=== PATIENT | male | born 1960 | race Caucasian/White ===

== ENCOUNTER 2019-03-16 15:11 | Outpatient (CLI) | payer OTHER, SELFPAY ==
--- NOTE | ~2019-03-16 | US_ITS ---
EXAMINATION: US abdomen complete DATE: 03/16/2019 15:57 INDICATION: Upper abdominal pain. TECHNIQUE: Multiple grayscale and Doppler ultrasound images of the abdomen were obtained. COMPARISON: CT abdomen and pelvis 03/28/2009 FINDINGS: The visualized portions of the head and body of the pancreas are normal. The liver is jenny l without focal lesion. There is normal flow in main portal vein. The gallbladder is not visualized. The common duct is not visualized. The spleen is normal in size. The right kidney is not visualized. The left kidney measures 10.8 x 6.8 x 5.1 cm. There is a 2.0 cm cyst in left kidney. IMPRESSION: 1. Gallbladder, common duct, and right kidney not visualized. No visibility etiology for the patient' s symptoms. Reviewed, dictated and finalized at location A. CH[facility] IMPRESSION: 1. Gallbladder, common duct, and right kidney not visualized. No visibility camryn ology for the patient's symptoms.
== END 2019-03-16 15:12 | disposition home or self-care (01) ==
LOC: ANHIMG 15:19
PROVIDERS: PCP Family Medicine; Visit Provider Family Medicine
DX: R10.13 Epigastric pain (principal)
CPT/HCPCS: 76700

== ENCOUNTER → 2020-03-22 01:08 | Outpatient (CLI) | payer OTHER, SELFPAY ==
[2020-03-23 00:21] LABS: SARS-CoV-2 RNA PCR Negative
== END ==
PROVIDERS: PCP Family Medicine; Visit Provider Internal Medicine Cardiovascular Disease
DX: Z01.812 Encounter for preprocedural laboratory examination (principal); Z20.822 Contact with and (suspected) exposure to COVID-19
CPT/HCPCS: C9803; U0003; U0005

== ENCOUNTER 2020-03-25 02:17 | Day surgery (SDC) | payer OTHER, SELFPAY ==
[2020-03-24 15:23] VITALS: BMI 33.3
[2020-03-25] VITALS (15 sets, daily range): BP systolic 149–170; BP diastolic 71–89; PULSE 89–101; RESP 12–18; TEMP 37.1; O2SAT 93–100; BMI 33.3
[2020-03-25 09:18] LABS: Basophils Absolute Auto 0.1 K/mm3 (0.0-0.1); Basophils Percent Auto 0.7 % (0.2-1.2); Eosinophils Absolute Auto 0.3 K/mm3 (0-0.3); Eosinophils Percent Auto 3.6 % (0-4.4); Hematocrit 34.4 % (42.0-52.0); Immature Granulocyte Absolute 0.02 K/mm3 (0.00-0.031); Immature Granulocyte Percent A 0.2 % (0-0.5); Lymphocytes Absolute Auto 1.75 K/mm3 (0.9-3.2); Lymphocytes Percent Auto 19.6 % (18.3-44.2); Mean Corpuscular Hemoglobin 29.4 pg (26-34); Mean Platelet Volume 9.5 fl (7.4-10.4); Monocytes Absolute Auto 0.9 K/mm3 (0.1-0.6); Monocytes Percent Auto 9.9 % (2.6-8.5); Neutrophils Absolute Auto 5.9 K/mm3 (1.3-6.7); Platelet Count Result 252 k/mm3 (150-375); Red Blood Count 3.74 M/mm3 (4.6-6.20); Red Cell Distribution Width 13.9 % (11.5-14.5); White Blood Count 8.9 K/mm3 (4.5-10.0)
[2020-03-25 09:28] LABS: INR 0.9
[2020-03-25 09:30] LABS: Anion Gap 6 mmol/L (8-16); Blood Urea Nitrogen 35 mg/dL (9-20); Calcium 7.3 mg/dL (8.4-10.2); Carbon Dioxide 31 mmol/L (22-30); Chloride 106 mmol/L (98-107); Estimated CRCL calculation 15 ml/min; Estimated Glomerular Filt Rate 10; Glucose 123 mg/dL (75-110); Potassium 4.3 mmol/L (3.4-5.0); Sodium 143 mmol/L (137-145)
--- NOTE | 2020-03-25 09:52 | WPDMODSED ---
Moderate Sedation Note-Pt Data Patient Data Allergies Allergy/AdvReac Type Severity Reaction Status Date / Time amoxicillin Allergy Unknown Verified 03/02/19 06:36 Penicillins Allergy Unknown Verified 03/02/19 06:36 Home Medications Medication Instructions Recorded Confirmed Type amlodipine 5 mg PO DAILY 02/26/19 03/24/20 History aspirin 325 mg PO DAILY 02/26/19 03/24/20 History blood-glucose sensor [Dexcom G6 02/26/19 03/24/20 History Sensor] hydrocodone-acetaminophen 5 - 325 tablet PO PRN PRN 02/26/19 03/24/20 History insulin aspart U-100 [Novolog 100 unit SUBCUT DAILY 02/26/19 03/24/20 History Flexpen U-100 Insulin] insulin glargine [Basaglar KwikPen 100 unit SUBCUT DAILY 02/26/19 03/24/20 History U-100 Insulin] liraglutide [Victoza 3-Raad] 0.6 mg SUBCUT DAILY 02/26/19 03/24/20 History lisinopril 40 mg PO DAILY 02/26/19 03/24/20 History pantoprazole 40 mg PO DAILY 02/26/19 03/24/20 History rosuvastatin 20 mg PO DAILY 02/26/19 03/24/20 History calcium acetate 1,334 mg PO TID 03/24/20 03/24/20 History tadalafil [Cialis] 20 mg PO DAILY PRN 03/24/20 03/24/20 History Current Medications: Active Medications Sodium Chloride (Normal Saline Iv) 500 mls @ 100 mls/hr IV CONT .Q5H RU Sedation/Anesthesia: No previous sedation/anesthesia problems (including family history). [facility] Past Medical History Medical History (Updated 03/02/19 @ 07:25 by Bryan Kinsey MD) CKD (chronic kidney disease) Diabetes HTN (hypertension) Hyperlipidemia Surgical History Surgical History (Updated 03/02/19 @ 07:25 by Bryan Kinsey MD) History of total knee arthroplasty Social History Social History Smoking status: Never smoker Alcohol intake: current Mod Sed Physical Exam Physical Exam Pre Procedural Exam: Normal: Airway Hours since solid foods: 10 Hours since liquid intake: 10 Internal Medicine - PN: Obj Da Vital Signs Vital Signs: Vital Signs - 24 hr 03/25/20 09:23 Temperature 37.1 C Pulse Rate 90 Respiratory Rate 15 Blood Pressure 150/79 H Pulse Oximetry 98 Meds/Results Medications: Active Medications Generic Name Dose Route Start Last Admin Trade Name Macq PRN Reason Stop Dose Admin Sodium Chloride 500 mls @ 100 mls/hr 03/25/20 07:05 Normal Saline Iv IV CONT .Q5H RU Labs CBC & Chem 7: 03/25/20 09:05 03/25/20 09:05 Labs: Laboratory Results - last 24 hr 03/25/20 03/25/20 03/25/20 09:05 09:05 09:05 WBC 8.9 RBC 3.74 L Hgb 11.0 L Hct 34.4 L MCV 92.0 MCH 29.4 MCHC 32.0 RDW 13.9 Plt Count 252 MPV 9.5 Immature Gran % (Auto) 0.2 Neut % (Auto) 66.0 Lymph % (Auto) 19.6 [place] % (Auto) 9.9 H Eos % (Auto) 3.6 Baso % (Auto) 0.7 Lymph # (Auto) 1.75 [place] # (Auto) 0.9 H Eos # (Auto) 0.3 Baso # (Auto) 0.1 Abs Immat Gran (auto) 0.02 Absolute Neuts (auto) 5.9 Absolute Nucleated RBC 0.0 Nucleated RBC % 0.0 PT 13.0 INR 0.9 Sodium 143 Potassium 4.3 Chloride 106 Carbon Dioxide 31 H Anion Gap 6 L BUN 35 H Creatinine 5.80 H Estim Creat Clear Calc 15 Estimated GFR 10 L Glucose 123 H Calcium 7.3 L ASA Classification/Sedation ASA Classification/Sedation Risks: Risks, benefits and alternatives explained and patient/family accepted plan for sedation. Patient re-evaluated immediately prior to sedation.
--- NOTE | 2020-03-25 09:52 | WPDHPUPDATE1 ---
History and Physical Update Update Date/Time: 03/25/20 09:52 History and Physical has been reviewed, including an updated exam of the patient. There are NO changes in the patient's condition. Risks, benefits, and alternatives have been discussed and questions answered. Patient agrees to proceed with procedure.
--- NOTE | 2020-03-25 10:42 | WPDCARDPROC ---
Cardiac Cath Procedure Note Date of procedure:: 03/25/20 Performing physician:: Rachid Villasenor MD Procedure Procedure note:: LEFT HEART CATHETERIZATION AND CORONARY ANGIOGRAM REPORT DATE OF PROCEDURE: 03/25/2020 INDICATION FOR PROCEDURE: shortness of breath, chest pressure, abnormal stress test BRIEF CLINICAL HISTORY: 59-year-old male with hypertension, diabetes mellitus on insulin, CKD on hemodialysis, dyslipidemia. Patient was referred for cardiac catheterization in the setting of shortness of breath, chest pressure and abnormal MPI. His MPI from 03/13/2020 reportedly showed LVEF 53%, small area of mild mirela-infarct ischemia in the inferior wall and mid -basal anterior anna Benefits and risks of the procedure were discussed with the patient in depth, and informed consent was obtained prior to the procedure. Risks of the procedure include but are not limited to vascular complications including groin hematoma, retroperitoneal bleed, vessel perforation; periprocedural AR, cardiac arrhythmias, stroke, contrast induced nephropathy, and . After discussing all the benefits, risks and alternatives, patient was willing to proceed with the procedure. PROCEDURES PERFORMED: 1. Left heart catheterization- Selective left and right coronary angiogram; left ventriculogram and hemodynamic assessment 2. Selective right common femoral angiogram 3. Moderate sedation-CPT code 82244 MODERATE SEDATION: Midazolam 2 mg; fentanyl 50 mcg; Start time 1024 , Stop time 1038 ; Total ixoc-ur-ktrm time 14 minutes; Mariah Gamboa RN was trained observer for moderate sedation. ACCESS SITE: Right common femoral artery PROCEDURE NOTE: After obtaining informed consent, patient was brought to catheterization lab and prepped and draped in a usual sterile manner. After local anesthesia with lidocaine, right common femoral artery access was taken with micropuncture needle followed by insertion of a 5 Ukrainian sheath. Selective left and right coronary angiogram was performed using 5 Ukrainian JL4 and JR4 catheters respectively. Orthogonal views were taken. JR4 catheter was advanced in the LV cavity and was flushed with normal saline. LV pressure measurement was performed. After this, left ventriculogram was performed. The catheter was flushed again, and gradient across the aortic valve was measured on the pullback of the catheter. Finally, selective right common femoral angiogram was performed. Access site was closed bifurcation, therefore, vascular closure device was not used. Manual pressure was used for local hemostasis. Patient tolerated procedure well without any immediate procedure related complications. FINDINGS: LEFT MAIN CORONARY: The left main coronary artery is a large caliber vessel without angiographically significant focal stenosis. The vessel trifurcates into LAD, ramus intermedius and dominant left circumflex arteries. LEFT ANTERIOR DESCENDING ARTERY: The LAD is a medium caliber vessel with mild diffuse plaque in the proximal -mid segment. The vessel tapers distally and reaches the LV apex. Diagonal branches are relatively small caliber vessels. RAMUS INTERMEDIUS: A medium to large caliber, tortuous vessel with minor irregularities in the proximal segment. LEFT CIRCUMFLEX ARTERY: The left circumflex artery is a large size, dominant vessel. It gives rise to medium caliber, tortuous OM1 branch; small caliber multiple other OM branches; and medium caliber tortuous LPDA without significant focal stenosis. RIGHT CORONARY ARTERY: The right coronary artery is a small to medium caliber non dominant vessel with about a 50% stenosis in the mid segment. LEFT VENTRICULOGRAM: suboptimal;LVEF about 50-55%, LVEDP 18 mmHg. HEMODYNAMIC ASSESSMENT: Opening pressure 130/70 mmHg , closing pressure 153/69 mmHg , LVEDP 18 mmHg , no significant gradient across aortic valve on the pullback of pigtail catheter. RIGHT COMMON FEMORAL ARTERY: Naz
== END 2020-03-25 18:10 | disposition home or self-care (01) ==
PROVIDERS: Internal Medicine Cardiovascular Disease; PCP Family Medicine; Visit Provider Internal Medicine Cardiovascular Disease
PROC: 4A023N7 Measurement of Cardiac Sampling and Pressure, Left Heart, Percutaneous Approach (ICD-10-PCS; CPT 93452; principal; 2020-03-25 10:30)
DX: I25.10 Atherosclerotic heart disease of native coronary artery without angina pectoris (principal); R94.39 Abnormal result of other cardiovascular function study; R07.89 Other chest pain; R06.02 Shortness of breath; I12.0 Hypertensive chronic kidney disease with stage 5 chronic kidney disease or end stage renal disease; E11.22 Type 2 diabetes mellitus with diabetic chronic kidney disease; N18.6 End stage renal disease; Z99.2 Dependence on renal dialysis; E78.5 Hyperlipidemia, unspecified; Z79.4 Long term (current) use of insulin; Z79.82 Long term (current) use of aspirin
CPT/HCPCS: 36415; 80048; 85025; 85610; 93458; C1887; C1894; J0461; J1644; J2250; J3010; J7040

== ENCOUNTER 2020-05-02 09:29 | Outpatient (CLI) | payer OTHER, SELFPAY ==
--- NOTE | ~2020-05-02 | XR_ITS ---
EXAMINATION: XR chest 2V DATE: 05/02/2020 09:42 INDICATION: Shortness of breath. COVID-19 pneumonia in August. TECHNIQUE: Frontal and lateral views of the chest were obtained. COMPARISON: Chest 2 views 05/19/2005 FINDINGS: The lung volumes are normal. There are mild airspace opacities in the mid and lower lung zo montrell. No pleural effusion or pneumothorax. The heart size is normal. IMPRESSION: 1. Mild airspace opacities in the mid and lower lung zones, consistent with atelectasis versus pneumo florencio versus chronic lung disease. Reviewed, dictated and finalized at location A. IMPRESSION: 1. Mild airspace opacities in the mid and lower lung zones, consistent with ate lectasis versus pneumonia versus chronic lung disease.
== END 2020-05-02 09:30 | disposition home or self-care (01) ==
LOC: ANHIMG 09:32
PROVIDERS: PCP Family Medicine; Visit Provider Internal Medicine Nephrology
DX: R06.02 Shortness of breath (principal); R04.2 Hemoptysis; R91.8 Other nonspecific abnormal finding of lung field
CPT/HCPCS: 71046

== ENCOUNTER 2020-11-28 11:02 | Outpatient (CLI) | payer OTHER, SELFPAY ==
--- NOTE | ~2020-11-28 | XR_ITS ---
XR chest 2V DATE: 11/28/2020 11:30 INDICATION: Shortness of breath. History of hypertension, diabetes TECHNIQUE: PA and lateral views COMPARISON: 05/02/2020 2 view chest FINDINGS: Cardiomegaly. No pulmonary infiltrate or consolidation, pleural effusion or pulmonary vascular congestion or pneumo thorax is detected. IMPRESSION: Cardiomegaly; no active pulmonary disease Reviewed, dictated and finalized at location A.
== END 2020-11-28 11:03 | disposition home or self-care (01) ==
LOC: ANHIMG 11:10
PROVIDERS: PCP Family Medicine; Visit Provider Internal Medicine Nephrology
DX: R06.02 Shortness of breath (principal); I51.7 Cardiomegaly
CPT/HCPCS: 71046

== ENCOUNTER 2021-01-21 02:58 | Observation (INO) | payer OTHER, MEDICARE, SELFPAY ==
[2021-01-21] VITALS (31 sets, daily range): BP systolic 104–156; BP diastolic 41–81; PULSE 89–111; RESP 12–20; TEMP 35.2–37.7; O2SAT 92–100; BMI 37.2
--- NOTE | ~2021-01-21 | CT_ITS ---
EXAMINATION: CTA chest PE protocol DATE: 01/21/2021 05:44 INDICATION: Chest pain. Shortness of breath. TECHNIQUE: Computed tomography angiography (CTA) of the chest was performed with 100 mL Omnipaque-350 intravenous contrast timed to evaluate the pulmonary arteries. Coronal maximum intensity projection 3D-reconstructions were created by the technologist. Automated exposure control and iterative reconst ruction technique were employed. The dose-length product was 1071.35 mGy-cm. COMPARISON: CT abdomen and pelvis 03/28/2009 FINDINGS: There is diffuse septal thickening in the lungs with a peripheral predominance. No pleural effusion. Cardiomegaly is noted. There are coronary artery calcifications. No pericardial effusion. T here is no pulmonary embolus. There is mild thoracic spondylosis. IMPRESSION: 1. No pulmonary embolus. 2. Diffuse septal thickening in the lungs, consistent with mild pulmonary edema and/or mild chronic i nterstitial lung disease. 3. Cardiomegaly. Reviewed, dictated and finalized at location A. [facility] [employer] IMPRESSION: 1. No pulmonary embolus. 2. Diffuse septal thickening in the lungs, consistent with mild pulmonary edema and/or mild chronic interstitial lung disease. 3. Cardiomegaly.
--- NOTE | ~2021-01-21 | XR_ITS ---
EXAMINATION: XR chest 2V DATE: 01/21/2021 03:59 INDICATION: Left chest pain. TECHNIQUE: Frontal and lateral views of the chest were obtained. COMPARISON: Chest 2 views 11/28/2020, chest CT 01/21/2021 FINDINGS: The lung volumes are small. There is a diffuse interstitial pattern in the lungs. No pleura l effusion or pneumothorax. Cardiomegaly is noted. IMPRESSION: 1. Small lung volumes with diffuse interstitial pattern, consistent with mild pulmonary edema versus mild chronic interstitial lung disease. 2. Cardiomegaly. Reviewed, dictated and finalized at location A. MAKER IMPRESSION: 1. Small lung volumes with diffuse interstitial pattern, consistent with mild p ulmonary edema versus mild chronic interstitial lung disease. 2. Cardiomegaly.
--- NOTE | 2021-01-21 03:03 | ED.CHESTPAIN ---
HPI - Chest Pain General Chief Complaint: Chest Pain Stated Complaint: chest pain, lt arm pain Time Seen by Provider: 01/21/21 03:03 Source: patient Mode of arrival: ambulatory Limitations: no limitations History of Present Illness HPI narrative: Patient is a 60 yo male with a history of HTN, Insulin dependent diabetes, HLD, ESRD on dialysis, presenting for evaluation of chest pain. Pain began around 1 am this morning. Pain 5/10. He reports left sided chest pain without radiation. No ripping or tearing to the flank. Pain is worse with inspiration. No diaphoresis, nausea, vomiting or dyspnea. No neck or jaw pain. Pt states this does not feel consistent with acid reflux. Pt has a history of chronic dyspnea with exertion. He denies current shortness of breath. Pt with heart catheterization in February which was normal. Patient is scheduled to have an ECHO tomorrow. This is in preparation of clearance for renal transplant. Patient's seat coverer is Dr. Lopez. Related Data Home Medications Medication Instructions Recorded Confirmed Basaglar KwikPen U-100 Insulin 100 unit SUBCUT DAILY 02/26/19 03/24/20 Dexcom G6 Sensor 02/26/19 03/24/20 Victoza 3-Raad 0.6 mg SUBCUT DAILY 02/26/19 03/24/20 amlodipine 5 mg PO DAILY 02/26/19 03/24/20 aspirin 325 mg PO DAILY 02/26/19 03/24/20 hydrocodone-acetaminophen 5 - 325 tablet PO PRN PRN 02/26/19 03/24/20 insulin aspart U-100 [Novolog 100 unit SUBCUT DAILY 02/26/19 03/24/20 Flexpen U-100 Insulin] lisinopril 40 mg PO DAILY 02/26/19 03/24/20 pantoprazole 40 mg PO DAILY 02/26/19 03/24/20 rosuvastatin 20 mg PO DAILY 02/26/19 03/24/20 calcium acetate 1,334 mg PO TID 03/24/20 03/24/20 tadalafil [Cialis] 20 mg PO DAILY PRN 03/24/20 03/24/20 Allergies Allergy/AdvReac Type Severity Reaction Status Date / Time amoxicillin Allergy Unknown Unknown Verified 01/21/21 03:24 Penicillins Allergy Unknown Unknown Verified 01/21/21 03:24 Review of Systems Review of Systems: CONSTITUTIONAL: Denies fever, chills, or sweats. EYES: Denies visual changes, redness, or discharge. ENT: Denies rhinorrhea, congestion, sore throat, or otalgia. CARDIOVASCULAR: Reports chest pain, without palpitations, or edema. RESPIRATORY: Denies cough or dyspnea. GASTROINTESTINAL: Denies abdominal pain, nausea, vomiting, or diarrhea. GENITOURINARY: Denies dysuria or hematuria. SKIN: Denies rash or itching. MUSCULOSKELETAL: Denies back pain, joint pain, or myalgia. NEUROLOGIC: Denies headache, numbness, or weakness. [facility] Past Medical History Medical History CKD (chronic kidney disease) Diabetes HTN (hypertension) Hyperlipidemia Surgical History Surgical History History of total knee arthroplasty Social History Social History Smoking status: Never smoker Alcohol intake: current Exam Narrative: GENERAL: Awake, alert, conversant HEAD: Normocephalic, atraumatic. EYES: PERRLA and EOMI. ENT: Nares clear, no rhinorrhea or epistaxis. Mucous membranes moist. NECK: Supple. CHEST: No respiratory distress, breathing even and non labored, no chest wall tenderness HEART: Regular rate, sinus rhythm ABDOMEN:Non distended, non tender EXTREMITIES: Normal range of motion. No edema. SKIN: Warm, dry, no rash. NEURO:No focal deficits. Alert and oriented x3 Course Vital Signs Vital signs: Vital Signs Pulse Rate 100 01/21/21 03:08 Respiratory Rate 15 01/21/21 03:08 Blood Pressure 130/81 01/21/21 03:08 Pulse Oximetry 99 01/21/21 03:08 Pulse Rate 98 01/21/21 06:00 Respiratory Rate 15 01/21/21 05:59 Blood Pressure 125/73 01/21/21 05:59 Pulse Oximetry 100 01/21/21 05:59 MDM - Chest Pain MDM Narrative Medical decision making narrative: Patient presented with left-sided chest pain. At the time of assessment ABCs are intact
--- NOTE | 2021-01-21 03:09 | ECG_ITS ---
Measurements Intervals [place] Rate: 102 P: 70 NV: 191 QRS: 15 QRSD: 101 T: 55 QT: 363 QTc: 473 Interpretive Statements SINUS TACHYCARDIA POSSIBLE LEFT ATRIAL ENLARGEMENT INCOMPLETE RIGHT BUNDLE BRANCH BLOCK BORDERLINE R WAVE PROGRESSION, ANTERIOR LEADS MINIMAL Q WAVES- INFERIOR LEADS BORDERLINE ECG Electronically Signed On 01-21-2021 6:46:47 PACKAGE LIFT OPERATOR by Chepe Lerner D.O.
[2021-01-21] MEDS: ASPIRIN 81 MG CHEWABLE TABLET 324 MG PO (03:32)
[2021-01-21] MEDS: ONDANSETRON INJ 4 MG/2 ML VIAL IV PUSH (03:33)
--- NOTE | 2021-01-21 03:35 | PC.NURSE ---
Pt given 1st SL nitro tab, rates pain a 5/10.
--- NOTE | 2021-01-21 03:40 | PC.NURSE ---
2nd SL nitro tab give, rates pain a 3/10 currently.
[2021-01-21 03:45] LABS: Basophils Absolute Auto 0.1 K/mm3 (0.0-0.1); Basophils Percent Auto 0.6 % (0.2-1.2); Eosinophils Absolute Auto 0.5 K/mm3 (0-0.3); Eosinophils Percent Auto 3.6 % (0-4.4); Hematocrit 35.8 % (42.0-52.0); Hemoglobin 11.4 g/dL (14.0-18.0); Immature Granulocyte Absolute 0.04 K/mm3 (0.00-0.031); Immature Granulocyte Percent A 0.3 % (0-0.5); Lymphocytes Absolute Auto 1.22 K/mm3 (0.9-3.2); Lymphocytes Percent Auto 9.7 % (18.3-44.2); Mean Corpuscular HGB Conc 31.8 g/dl (32-36); Mean Corpuscular Hemoglobin 31.4 pg (26-34); Mean Corpuscular Volume 98.6 fl (80-100); Mean Platelet Volume 10.2 fl (7.4-10.4); Monocytes Percent Auto 8.1 % (2.6-8.5); Neutrophils Absolute Auto 9.8 K/mm3 (1.3-6.7); Neutrophils Percent Auto 77.7 % (45.5-73.1); Platelet Count Result 225 k/mm3 (150-375); Red Blood Count 3.63 M/mm3 (4.6-6.20); Red Cell Distribution Width 16.1 % (11.5-14.5); White Blood Count 12.6 K/mm3 (4.5-10.0)
--- NOTE | 2021-01-21 03:53 | PC.NURSE ---
Pt to XRAY at this time.
[2021-01-21 03:55] LABS: INR 1.1; Prothrombin Time 14.1 Seconds (11.1-14.7)
[2021-01-21 03:56] LABS: Partial Thromboplastin Time 31.8 SECONDS (22.3-36.8)
[2021-01-21 03:59] LABS: Alanine Aminotransferase 38 U/L (4-50); Albumin Level 4.5 g/dL (3.5-5.1); Alkaline Phosphatase 83 U/L (38-126); Anion Gap 16 mmol/L (8-16); Aspartate Amino Transferase 24 U/L (17-59); Bilirubin,Total 0.4 mg/dL (0.2-1.3); Blood Urea Nitrogen 85 mg/dL (9-20); Calcium 9.7 mg/dL (8.4-10.2); Carbon Dioxide 24 mmol/L (22-30); Chloride 96 mmol/L (98-107); Estimated Glomerular Filt Rate 5; Glucose 102 mg/dL (65-110); Lipase 119 U/L (23-300); Potassium 5.4 mmol/L (3.4-5.0); Sodium 136 mmol/L (137-145)
--- NOTE | 2021-01-21 04:00 | PC.NURSE ---
3rd SL nitro tab given, rates pain a 5/10 at this time, states It got worse again after my XRAYs and everything, I dont think its helped at all. EDP made aware.
[2021-01-21] MEDS: MORPHINE SULFATE (*CRX) 4 MG/ML INJ IV PUSH (04:08)
[2021-01-21 04:20] LABS: Troponin I 0.113 ng/mL (0.000-0.034)
--- NOTE | 2021-01-21 04:39 | ECG_ITS ---
Measurements Intervals [place] Rate: 93 P: 64 [place]: 188 QRS: 123 QRSD: 102 T: 61 QT: 376 QTc: 469 Interpretive Statements SINUS RHYTHM INCOMPLETE RIGHT BUNDLE BRANCH BLOCK LEFT POSTERIOR FASCICULAR BLOCK BORDERLINE R WAVE PROGRESSION, ANTERIOR LEADS ABNORMAL ECG Electronically Signed On 01-21-2021 6:48:48 RETAIL SERVICES PROFESSIONAL by Chepe Lerner D.O.
[2021-01-21 04:59] LABS: D Dimer 1.03 ug/mL (<0.48)
[2021-01-21 05:46] LABS: Glucose Point of Care 65 mg/dl (65-105)
--- NOTE | 2021-01-21 06:14 | ADMGEN ---
This patient, Rashda Andrew, was admitted to IMU Room 205-02. Patient/family oriented to hospital policies and general routines including ID bracelet, bed and alarms, visiting hours, pain management, procedures, bathroom and other care routines, personal items, smoking policy, room service/diet, and visiting hours. Information on how to activate the Rapid Response Team has been discussed. Patient/Family are encouraged to report perceived risks to care and to ask questions if they do not understand what they are told or what they should do.
[2021-01-21 08:03] LABS: Troponin I 0.112 ng/mL (0.000-0.034)
--- NOTE | 2021-01-21 08:06 | PM.IMHP ---
H&P: HPI History of Present Illness Date/Time: 01/21/21 08:06 Patient is a 60 yo gentleman with past a medical history of HTN, Insulin dependent diabetes, HLD, ESRD on MWF dialysis, currently being evaluated for a renal transplant, presenting for evaluation of chest pain. The patient was in his usual state of health until 1 am this morning. He developed sudden onset chest pain. Pain is rated 5/10on ER evaluation. He describes 8/10, pressure on his left chest pain without radiation at the time of my examination. No ripping or tearing to the flank. Pain is worse with inspiration. No diaphoresis, nausea, vomiting or dyspnea. No neck or jaw pain. Pt states this does not feel consistent with acid reflux. Patient underwent with heart catheterization in February. Report was reviewed. CAD- mild diffuse plaque proximal-mid LAD; about 50% stenosis in the mid segment of non-dominant RCA. 2. Left dominant coronary system 3. LVEF about 50-55%, LVEDP 18 mmHg. Patient reports a history of ESRD secondary to complication from diabetes. He dialyzes religiously 3 times a week at the [facility]. He does not report any issues with his dialysis sessions. The patient functional capacity is about 200 yd, limited by the development of shortness of breath. He is comfortable at rest. His currently being evaluated for renal transplant. He has not identified a living donor. Recent cardiac catheterization from February 2020 with 50% stenosis of mixed segment of non dominant RCA. He denies any history of GI problems. He denies past blood transfusion. He denies past psychiatric issues. Patient is overweight with a BMI of 37.2. Ideally he should lose some weight before undergoing kidney transplantation. Patient has recovered from an episode of COVID-19 last year; he has experienced chronic fatigue since that episode. Chief Complaint: Chest pain. Review of Systems Review of Systems: All systems reviewed & are unremarkable except as noted in HPI and below Constitutional: Constitutional: Reports as per HPI, Reports fatigue, Reports lethargy and Denies weakness Eyes: Eyes: Reports as per HPI and Denies blurry vision ENT: Reports as per HPI and Denies epistaxis Cardiovascular: Cardiovascular: Reports as per HPI, Reports chest pain, Denies pedal edema, Denies leg edema and Denies palpitations Respiratory: Respiratory: Reports as per HPI, Reports no additional respiratory complaints and Denies cough Gastrointestinal: Gastrointestinal: Reports as per HPI, Denies diarrhea, Denies nausea and Denies vomiting Genitourinary: Genitourinary: Reports no additional male genitourinary complaints and Reports as per HPI Musculoskeletal: Musculoskeletal: Reports no additional musculoskeletal complaints and Reports as per HPI Integumentary/Breasts: Skin/Breast: Reports system reviewed and no additional complaints, except as docu, Reports as per HPI and Denies rash Neurologic: Reports as per HPI and Denies confusion Psychiatric: Psychiatric: Reports as per HPI [facility] Past Medical History Medical History CKD (chronic kidney disease) Diabetes Diabetes HTN (hypertension) Hyperlipidemia Surgical History Surgical History History of total knee arthroplasty Social History Social History Smoking status: Never smoker Alcohol intake: never Substance use: never Spiritual care concerns: No Meds Home Medications and Allergies Home Medications Medication Instructions Recorded Confirmed Type Basaglar SamariaikPen U-100 Insulin 30 unit SUBCUT DAILY 02/26/19 01/21/21 History Dexcom G6 Sensor 02/26/19 01/21/21 History Victoza 3-Raad 0.6 mg SUBCUT DAILY 02/26/19 01/21/21 History amlodipine 5 mg PO QPM 02/26/19 01/21/21 History aspirin 325 mg PO DAILY 02/26/19 01/21/21 History hydrocodone-acetaminophen 5 - 325 tablet PO Q6H PRN 01
[2021-01-21 09:09] LABS: Glucose Point of Care 67 mg/dl (65-105)
[2021-01-21] MEDS: HYDROmorphone HCL INJ (*CRX) 1 MG/ML SYR IV PUSH (09:38)
[2021-01-21 10:23] LABS: Transferrin 165 mg/dL (206-381)
--- NOTE | 2021-01-21 10:30 | PM.CNCAR ---
Assessment and Plan Assessment and plan (1) Atypical chest pain: Code(s): R07.89 - Other chest pain Status: Acute Assessment and Plan: Clearly non coronary chest pain. His chest pain is pleuritic and change with positions such as leaning forward improved his pain. Possibly pericarditic but EKG does not support pericarditis. CT scan of chest performed in ED did not show any PE. Will give him 15 mg of IV Toradol. 2D echocardiogram with Doppler be ordered to evaluate for any evidence pericardial effusion. (2) Elevated troponin: Code(s): R77.8 - Other specified abnormalities of plasma proteins Status: Acute Assessment and Plan: These are not related to acute coronary syndrome. These are likely secondary to renal disease. Will DC further troponins. (3) Hypertension associated with diabetes: Code(s): E11.59 - Type 2 diabetes mellitus with other circulatory complications; I15.2 - Hypertension secondary to endocrine disorders Status: Acute Assessment and Plan: Controlled. Continue outpatient BP regimen (4) Hyperlipidemia associated with type 2 diabetes mellitus: Code(s): E11.69 - Type 2 diabetes mellitus with other specified complication; E78.5 - Hyperlipidemia, unspecified Status: Acute Assessment and Plan: Continue statin (5) End stage renal disease: Code(s): N18.6 - End stage renal disease Status: Acute Assessment and Plan: Dialysis to be performed today History of Present Illness History of Present Illness Consult date/time: 01/21/21 10:30 Requesting physician: Lanette Tolbert MD Consult reason: chest pain Reason For Visit: Chest Pain Narrative: Requesting provider: Dr. Tolbert Date of service 01/21/2021 Reason for consultation: Chest pain History: Patient is a 60-year-old male but a cardiac catheterization March 2020 showing no obstructive coronary disease. He had a mildly elevated LVEDP and EF 50-55%. He presents to the hospital because of chest pain. Woke up chest pain around 1:00 a.m. this morning. It was pleuritic. Worsened by breathing. Improved also with sitting forward. Not exertional. Does have some baseline dyspnea which is not new or different also some baseline edema which is also not new or different. He states that his edema is secondary to his end-stage renal disease. He states his dyspnea has been present since last August since he acquired COVID. He denies any syncope, presyncope, paroxysmal nocturnal dyspnea, orthopnea or palpitations. He was given pain medications and his chest pain has now improved. His troponins are minimally elevated but are not rising. Cardiology was consult for further assessment. Review of Systems Review of Systems: All systems reviewed & are unremarkable except as noted in HPI and below Constitutional: Constitutional: Denies weakness Eyes: Eyes: Denies blurry vision ENT: Reports Normal hearing present Cardiovascular: Cardiovascular: Reports chest pain and Reports leg edema Respiratory: Respiratory: Reports dyspnea Gastrointestinal: Gastrointestinal: Denies abdominal pain Genitourinary: Genitourinary: Denies dysuria Musculoskeletal: Musculoskeletal: Denies neck pain Integumentary/Breasts: Skin/Breast: Denies dry skin Neurologic: Denies headache(s) Psychiatric: Psychiatric: Denies anxiety Endocrine: Endocrine: Denies fatigue Hematologic/Lymphatic: Hematologic/Lymphatic: Denies easy bleeding Allergic/Immunologic: Allergic/Immunologic: Denies GI upset with certain foods PMFSH Past Medical History Medical History CKD (chronic kidney disease) Diabetes HTN (hypertension) Hyperlipidemia Surgical History Surgical History History of total knee arthroplasty Social History Social History Smoking sta
[2021-01-21 10:37] LABS: Iron 46 ug/dL (49-181)
[2021-01-21 10:46] LABS: Percent Iron Saturation 20 % (20-50)
[2021-01-21 10:48] LABS: Troponin I 0.105 ng/mL (0.000-0.034)
[2021-01-21] MEDS: SODIUM CHLORIDE 0.9% IV 1,000 ML 999 ML IV CONT (11:36)
--- NOTE | 2021-01-21 13:07 | PM.EVENT ---
Event Note Event Note Event Note: Patient is on dialysis and tolerating well. His blood pressure is 108/70. We are going for 3L today. He was seen at noon
--- NOTE | 2021-01-21 13:09 | PM.CNNEP ---
Assessment and Plan Assessment and plan (1) End stage renal disease: Code(s): N18.6 - End stage renal disease Status: Acute Assessment and Plan: patient has end-stage renal disease. This is due to diabetes and hypertension. He has been stable on dialysis for the last11 months. His Kt/vs have been generally good. Labs are pretty good as well except a phosphorus level is a little bit high. He goes to dialysis religiously 3 times a week. (2) Hyperlipidemia associated with type 2 diabetes mellitus: Code(s): E11.69 - Type 2 diabetes mellitus with other specified complication; E78.5 - Hyperlipidemia, unspecified Status: Acute Assessment and Plan: The patient has hyperlipidemia. He is on rosuvastatin (3) Hypertension associated with diabetes: Code(s): E11.59 - Type 2 diabetes mellitus with other circulatory complications; I15.2 - Hypertension secondary to endocrine disorders Status: Acute Assessment and Plan: blood pressure is doing well. He currently takes lisinopril and amlodipine. (4) Atypical chest pain: Code(s): R07.89 - Other chest pain Status: Acute Assessment and Plan: The patient has chest pain. This is not typical of angina in description. It is sharp and worse on lying flat better sitting up straight. It is not in exactly the right location but it could be pericarditis. However he is well dialyzed, he does not have a viral syndrome or other causes of pericarditis, his EKG does not suggest pericarditis, and he does not have a rub. This could be chest wall pain as well or possibly pleurisy. He is being evaluated by Cardiology and the hospitalists. (5) Diabetes: Code(s): E11.9 - Type 2 diabetes mellitus without complications Status: Acute Assessment and Plan: The patient has diabetes. He is on basaglar and NovoLog for this. History of Present Illness Reason for Consult Consult date: 01/21/21 Chief Complaint Chief complaint: Chest Pain History of Present Illness Narrative: Rashad is a very pleasant 60-year-old gentleman who has multiple medical problems including diabetes, hypertension, coronary disease with a 30- 50% lesion being treated medically, end-stage renal disease on dialysis 3 times a week since February. The patient says that he had sharp chest pain starting this morning at 1:00 a.m.. It will come out of sleep. He had no shortness of breath sweating nausea arm pain or jaw pain. It hurt a lot and so when he sat up from bed it felt better. He called 911. They gave him nitro which did not work at all. He went to the ER and he was given morphine which took the edge off it but then Dilaudid which took care of the pain. The patient was admitted to the hospital. Cardiology has been consulted. They have ordered some testing. The patient feels better now. He does not have as much chest pain. There is a trace of it now. He does not smoke or drink. Review of Systems Constitutional: Constitutional: Reports no additional constitutional complaints Eyes: Eyes: Reports no additional eye complaints ENT: Reports system reviewed and no additional complaints, except as documented Cardiovascular: Cardiovascular: Reports no additional cardiovascular complaints Respiratory: Respiratory: Reports no additional respiratory complaints Gastrointestinal: Gastrointestinal: Reports no additional gastrointestinal complaints Genitourinary: Genitourinary: Reports no additional male genitourinary complaints Musculoskeletal: Musculoskeletal: Reports no additional musculoskeletal complaints Integumentary/Breasts: Skin/Breast: Reports system reviewed and no additional complaints, except as docu Neurologic: Reports system reviewed and no additional complaints, except as documented Psychiatric: Psychiatric: Reports no additional psychiatric complaints Endocrine: Endocrine: Reports no additional endoc
[2021-01-21 17:57] LABS: Glucose Point of Care 43 mg/dl (65-105)
[2021-01-21 17:57] LABS: Glucose Point of Care 225 mg/dl (65-105)
[2021-01-21 20:44] LABS: Glucose Point of Care 211 mg/dl (65-105)
[2021-01-21] MEDS: ROSUVASTATIN 10 MG TABLET 20 MG PO (22:20)
[2021-01-21] MEDS: PANTOPRAZOLE 40 MG TABLET PO (22:20)
[2021-01-22] VITALS (7 sets, daily range): BP systolic 116–123; BP diastolic 57–67; PULSE 93–100; RESP 16–18; TEMP 36.5–37.2; O2SAT 93–95
--- NOTE | 2021-01-22 | ECHO_ITS ---
Patient Info Name: Rashad Andrew Age: 60 years : 1960 Gender: Male Ht: 68 in Wt: 244 lbs BSA: 2.35 m2 HR: 95 bpm BP: 123 / 67 mmHg Heart Rhythm: Sinus Rhythm Exam Date: 01/22/2021 9:14 AM Exam Location: [facility] Patient Status: Inpatient Admit Date: 01/21/2021 Staff Ordering Physician: Shaggy Fry MD Torch Straightener: Arvind Barnard, PRANAV, RT Attending Provider: Leti Key MD Referring Physician: Ang TAM; Exam Type: CA echo dop color flow w con Study Info Indications R07.9 - Chest pain, unspecified Complete two-dimensional, color flow and Doppler transthoracic echocardiogram is performed with contrast to opacify the left ventricle and to improve the deliniation of the left ventricle endocardial borders. Summary 1. Left ventricular chamber dimension is moderately enlarged. 2. Left ventricular systolic function is severely reduced, estimated at 20-25%. 3. There is mildly increased left ventricular wall thickness. 4. The left ventricular diastolic function is grade III diastolic dysfunction. 5. There is no thrombus visualized in the left ventricle. 6. Right ventricular chamber dimension is mildly enlarged. 7. Right ventricular systolic function is reduced. 8. Left atrial chamber dimension is moderately enlarged. 9. Right atrial chamber dimension is mildly enlarged. 10. There is mild to moderate aortic valve regurgitation. 11. The mitral valve annulus is mildly calcified. 12. There is mild mitral valve regurgitation. 13. Mild pulmonary hypertension, estimated pulmonary arterial systolic pressure is 39 mmHg. 14. There is moderate tricuspid valve regurgitation. 15. There is mild pulmonic regurgitation. Left Ventricle Left ventricular chamber dimension is moderately enlarged. Left ventricular systolic function is severely reduced, estimated at 20-25%. There is mildly increased left ventricular wall thickness. The left ventricular diastolic function is grade III diastolic dysfunction. There is no thrombus visualized in the left ventricle. Right Ventricle Right ventricular chamber dimension is mildly enlarged. Right ventricular systolic function is reduced. Left Atria Left atrial chamber dimension is moderately enlarged. Right Atria Right atrial chamber dimension is mildly enlarged. Atrial Septum Intact interatrial septum visualized by color flow imaging. Aortic Valve The aortic valve is trileaflet. There is mild aortic valve sclerosis. There is no aortic valve stenosis. There is mild to moderate aortic valve regurgitation. Pulmonic Valve The pulmonic valve is normal. There is no pulmonic valve stenosis. There is mild pulmonic regurgitation. Mitral Valve There is no mitral valve stenosis. There is mild mitral valve regurgitation. The mitral valve annulus is mildly calcified. Tricuspid Valve The tricuspid valve leaflets are normal. There is moderate tricuspid valve regurgitation. Mild pulmonary hypertension, estimated pulmonary arterial systolic pressure is 39 mmHg. Pericardium/Pleural The pericardium appears normal. There is trivial pericardial effusion. Inferior Vena Cava Dilated inferior vena cava with <50% collapse upon inspiration consistent with elevated right atrial pressure, 15 mmHg. Aorta The aortic root size at the sinus of Valsalva is normal. The prox ascending aorta size is normal. Left Ventricular Outflow Tract
--- NOTE | 2021-01-22 07:03 | PM.PNNEP ---
Progress Note: A&P Assessment and Plan (1) End stage renal disease: Code(s): N18.6 - End stage renal disease Status: Acute Assessment and Plan: patient has end-stage renal disease. This is due to diabetes and hypertension. He has been stable on dialysis for the last11 months. His Kt/vs have been generally good. Him on dialysis due tomorrow; if he is still here, we will do it here. Labs from today are pending. (2) Hyperlipidemia associated with type 2 diabetes mellitus: Code(s): E11.69 - Type 2 diabetes mellitus with other specified complication; E78.5 - Hyperlipidemia, unspecified Status: Acute Assessment and Plan: The patient has hyperlipidemia. He is on rosuvastatin (3) Hypertension associated with diabetes: Code(s): E11.59 - Type 2 diabetes mellitus with other circulatory complications; I15.2 - Hypertension secondary to endocrine disorders Status: Acute Assessment and Plan: blood pressure is doing well. He currently takes lisinopril and amlodipine. (4) Atypical chest pain: Code(s): R07.89 - Other chest pain Status: Acute Assessment and Plan: The patient has chest pain. This is not typical of angina in description. It is sharp and worse on lying flat better sitting up straight. It is not in exactly the right location but it could be pericarditis. However he is well dialyzed, he does not have a viral syndrome or other causes of pericarditis, his EKG does not suggest pericarditis, and he does not have a rub. This could be chest wall pain as well or possibly pleurisy. He is being evaluated by Cardiology who feels that this is not coronary chest pain. CTA was negative. Echo due today. (5) Diabetes: Code(s): E11.9 - Type 2 diabetes mellitus without complications Status: Acute Assessment and Plan: The patient has diabetes. He is on basaglar and NovoLog for this at home.. Subjective Date/time seen: 01/22/21 07:03 Interval history: Rashad is feeling better today. Pain is gone. He did well for the remainder of his dialysis yesterday. 2600cc was removed on the machine. Review of Systems Cardiovascular: Cardiovascular: Reports no additional cardiovascular complaints Respiratory: Respiratory: Reports no additional respiratory complaints Gastrointestinal: Gastrointestinal: Reports no additional gastrointestinal complaints Genitourinary: Genitourinary: Reports no additional male genitourinary complaints Exam Narrative: WDWN in NAD skin no rash head ncat lungs clear No chest wall tenderness cor reg no rub abd BS+ nontender and soft ext no edema. Objective Data Vital Signs Vital Signs: Vital Signs - 24 hr 01/21/21 08:00 01/21/21 10:00 01/21/21 10:35 Temperature 36.9 C 36.9 C Pulse Rate 96 97 98 Respiratory Rate 16 16 Blood Pressure 126/69 128/71 Pulse Oximetry 98 01/21/21 10:46 01/21/21 11:00 01/21/21 11:30 Temperature Pulse Rate 94 92 94 Respiratory Rate Blood Pressure 116/68 117/72 121/64 Pulse Oximetry 01/21/21 11:45 01/21/21 12:00 01/21/21 12:15 Temperature Pulse Rate 97 94 98 Respiratory Rate Blood Pressure 132/63 108/55 L 104/53 L Pulse Oximetry 01/21/21 12:30 01/21/21 12:45 01/21/21 13:00 Temperature Pulse Rate 93 102 H 100 Respiratory Rate Blood Pressure 134/53 L 127/61 148/71 H Pulse Oximetry 01/21/21 13:15 01/21/21 13:30 01/21/21 13:50 Temperature Pulse Rate 102 H 89 101 H Respiratory Rate Blood Pressure 119/77 130/41 L 132/54 L Pulse Oximetry 01/21/21 14:00 01/21/21 16:00 01/21/21 18:00 Temperature 36.8 C 37.7 C H Pulse Rate 99 109 H 101 H Respiratory Rate 16 16 Blood Pressure 156/64 H 115/58 L Pulse Oximetry 98 01/21/21 18:50 01/21/21 20:00 01/21/21 22:00 Temperature 36.7 C Pulse Rate 104 H 105 H Respiratory Rate 20 Blood Pressure 104/68 123/64 Pulse Oximetry 92 12/0
[2021-01-22 08:39] LABS: Albumin Level 4.3 g/dL (3.5-5.1); Anion Gap 11 mmol/L (8-16); Blood Urea Nitrogen 59 mg/dL (9-20); Calcium 8.6 mg/dL (8.4-10.2); Carbon Dioxide 29 mmol/L (22-30); Chloride 90 mmol/L (98-107); Estimated CRCL calculation 10 ml/min; Estimated Glomerular Filt Rate 6; Glucose 129 mg/dL (65-110); Phosphorus 5.9 mg/dL (2.5-4.5); Potassium 6.2 mmol/L (3.4-5.0); Sodium 130 mmol/L (137-145)
[2021-01-22] MEDS: FLUTICASONE PROP 220 MCG (*SP) 12 GM INHALER 1 PUFF INHALATION (09:00)
[2021-01-22] MEDS: PERFLUTREN LIPID MICROSPHERES 1.5 ML VIAL DILUTED TO 10 ML TOTAL VOLUME IV PUSH (09:05)
[2021-01-22 09:33] LABS: Potassium 6.6 mmol/L (3.4-5.0)
[2021-01-22] MEDS: SODIUM POLYSTYRENE SULFONONATE 15 GM/60 ML BTL PO (09:44)
[2021-01-22] MEDS: FUROSEMIDE 80 MG TABLET PO (09:44)
[2021-01-22] MEDS: ASPIRIN 325 MG TABLET PO (09:44)
[2021-01-22] MEDS: CALCIUM ACETATE 667 MG TABLET 1334 MG PO (09:44)
[2021-01-22] MEDS: ALBUTEROL SULFATE NEB 2.5 MG/3 ML INH 5 MG INHALATION (10:36)
[2021-01-22] MEDS: DEXTROSE 50% 25 GM/50 ML SYRINGE IV PUSH (11:15)
[2021-01-22] MEDS: INSULIN HUMAN REGULAR (*BKC) 100 UNITS/ML IV PUSH (11:15)
--- NOTE | 2021-01-22 12:45 | PM.PNCARD ---
Progress Note: A&P Assessment and Plan (1) Atypical chest pain: Code(s): R07.89 - Other chest pain Status: Acute Assessment and Plan: Resolved . Echo pending (2) Elevated troponin: Code(s): R77.8 - Other specified abnormalities of plasma proteins Status: Acute Assessment and Plan: These are not related to acute coronary syndrome. These are likely secondary to renal disease. (3) Hypertension associated with diabetes: Code(s): E11.59 - Type 2 diabetes mellitus with other circulatory complications; I15.2 - Hypertension secondary to endocrine disorders Status: Acute Assessment and Plan: Controlled. Continue outpatient BP regimen (4) Hyperlipidemia associated with type 2 diabetes mellitus: Code(s): E11.69 - Type 2 diabetes mellitus with other specified complication; E78.5 - Hyperlipidemia, unspecified Status: Acute Assessment and Plan: Continue statin (5) End stage renal disease: Code(s): N18.6 - End stage renal disease Status: Acute Assessment and Plan: Dialysis to be performed today (6) Hyperkalemia: Code(s): E87.5 - Hyperkalemia Status: Acute Assessment and Plan: Potassium level 6.6. Will reorder a stat potassium but if elevated likely needs Kayexalate Subjective Date/time seen: 01/22/21 12:45 Interval history: [age] Year old admitted for atypical chest pain : Date of service 01/22/2021: Feels much better. No chest pain, shortness of breath. Review of Systems Review of Systems: All systems reviewed & are unremarkable except as noted in HPI and below Constitutional: Constitutional: Denies fatigue, Denies headache(s) and Denies weakness Eyes: Eyes: Denies blurry vision ENT: Reports Normal hearing present, Denies headache(s) and Denies neck pain Cardiovascular: Cardiovascular: Reports chest pain, Reports leg edema and Reports dyspnea Respiratory: Respiratory: Reports dyspnea Gastrointestinal: Gastrointestinal: Denies abdominal pain Genitourinary: Genitourinary: Denies dysuria Musculoskeletal: Musculoskeletal: Denies neck pain Integumentary/Breasts: Skin/Breast: Denies dry skin Neurologic: Reports Normal hearing present, Denies headache(s) and Denies weakness Psychiatric: Psychiatric: Denies anxiety Endocrine: Endocrine: Denies fatigue Hematologic/Lymphatic: Hematologic/Lymphatic: Denies easy bleeding Allergic/Immunologic: Allergic/Immunologic: Denies GI upset with certain foods Exam Narrative: Alert and appears stated age Const: General: comfortable and no acute distress HENMT: General nose exam: Normal nares present Eyes: Sclera: sclerae normal Neck: Neck: supple and no JVD Chest: Other: no reproducible chest wall pain Resp: Auscultation: clear to auscultation bilaterally Cardio: Rate: regular rate Rhythm: regular rhythm Heart sounds: no gallops, no murmurs and no rubs GI: Auscultation: normal bowel sounds Skin: General skin exam: normal color Neuro: Cranial nerves: Yes Normal hearing present Cognition (Neuro): normal cognition Speech: normal speech Extrem: General: edema (Mild bilateral extremity edema) Psych: Mental Status: mental status grossly normal Objective Data Vital Signs Vital Signs: Vital Signs - 24 hr 01/21/21 13:00 01/21/21 13:15 01/21/21 13:30 Temperature Pulse Rate 100 102 H 89 Respiratory Rate Blood Pressure 148/71 H 119/77 130/41 L Pulse Oximetry 01/21/21 13:50 01/21/21 14:00 01/21/21 16:00 Temperature 36.8 C 37.7 C H Pulse Rate 101 H 99 109 H Respiratory Rate 16 16 Blood Pressure 132/54 L 156/64 H 115/58 L Pulse Oximetry 98 01/21/21 18:00 01/21/21 18:50 01/21/21 20:00 Temperature 36.7 C Pulse Rate 101 H 104 H Respiratory Rate 20 Blood Pressure 104/68 123/64 Pulse Oximetry 92 01/21/21 22:00 01/22/21 00:00 01/22/21 02:00 Temperature 37.2 C Pulse Rate 105 H 98 98 Respi
[2021-01-22 12:49] LABS: Potassium 5.4 mmol/L (3.4-5.0)
[2021-01-22 13:17] LABS: Glucose Point of Care 195 mg/dl (65-105)
--- NOTE | 2021-01-22 14:00 | PM.DS ---
DS: Admitting Diagnosis Discharge Date 01/22/2021 Admitting Diagnosis (1) Atypical chest pain: (2) End stage renal disease: (3) Hyperlipidemia associated with type 2 diabetes mellitus: (4) Hypertension associated with diabetes: (5) Diabetes: DS: Discharge Diagnosis Discharge Diagnosis (1) Atypical chest pain: Code(s): R07.89 - Other chest pain Status: Acute Assessment and Plan: Patient presented with atypical chest pain. Patient is described by pressure, worse with lying flat and improved with sitting of. No evidence of viral prodrome on history. On physical exam there is no rub. CT scan of the chest did not reveal pericardial effusion this may represent a type of pleuritic chest pain or musculoskeletal chest pain. Pain management with Dilaudid urine. Avoid NSAIDs in patients with residual kidney function. He is being evaluated by Cardiology; he is also undergoing clearance in anticipation of evaluation for renal transplantation.. (2) End stage renal disease: Code(s): N18.6 - End stage renal disease Status: Acute Assessment and Plan: Patient carries a diagnosis of ESRD secondary to complication of longstanding diabetes and hypertension. He has recently been started on dialysis for about 11 months. Dialysis per outpatient schedule. Due to reports of chronic fatigue, check count profile and replace sounds stores as needed (3) Hyperlipidemia associated with type 2 diabetes mellitus: Code(s): E11.69 - Type 2 diabetes mellitus with other specified complication; E78.5 - Hyperlipidemia, unspecified Status: Acute Assessment and Plan: The patient has hyperlipidemia. Continue rosuvastatin (4) Hypertension associated with diabetes: Code(s): E11.59 - Type 2 diabetes mellitus with other circulatory complications; I15.2 - Hypertension secondary to endocrine disorders Status: Acute Assessment and Plan: Blood culture is well controlled. He currently takes lisinopril and amlodipine. Continue home regimen. (5) Diabetes: Code(s): E11.9 - Type 2 diabetes mellitus without complications Status: Acute Assessment and Plan: The patient has diabetes. He is on basaglar and NovoLog for this. Fasting blood sugar was 102. Accu-Chek were 65 and 67 respectively. Avoid hypoglycemia. DS: Summary Hospital Course Reason for hospitalization: Chest pain. Hospital Course: Patient is a 60 yo gentleman with past a medical history of HTN, Insulin dependent diabetes, HLD, ESRD on MWF dialysis, currently being evaluated for a renal transplant, presenting for evaluation of chest pain. The patient was in his usual state of health until 1 am the day of presentation. The pain is atypical, pleuritic and changes with positions such as leaning forward which improved his pain. The pain was thought to be possibly pericarditic. CT scan of chest performed in ED did not show any pericardial effusion. Patient underwent with heart catheterization in March 2020. Report was reviewed. CAD- mild diffuse plaque proximal-mid LAD; about 50% stenosis in the mid segment of non-dominant RCA. 2. Left dominant coronary system. 3. LVEF about 50-55%, LVEDP 18 mmHg. Patient reports a history of ESRD secondary to complication from hypertension and diabetes. He dialyzes religiously 3 times a week at the [facility] in [place], [place] for the past 11 month. He does not report any issues with his dialysis sessions. He has not experienced any issues with the AV fistula. The patient functional capacity is about 200 yd, limited by the development of shortness of breath. He is comfortable at rest. His currently being evaluated for renal transplant. He has not identified a living donor. Recent cardiac catheterization from February 2020 with 50% stenosis of mixed segment of non dominant RCA. He denies any history of GI problems. He denies past blood transfusion. He denies past psychiatric issues
== END 2021-01-22 15:42 | disposition home or self-care (01) ==
LOC: ANHED 04:41 → ANHIMU 08:38
PROVIDERS: Internal Medicine Nephrology; Admitting Provider Internal Medicine; Emergency Provider Emergency Medicine; PCP Family Medicine; Visit Provider Internal Medicine
DX: R07.89 Other chest pain (principal); I12.0 Hypertensive chronic kidney disease with stage 5 chronic kidney disease or end stage renal disease; N18.6 End stage renal disease; E11.22 Type 2 diabetes mellitus with diabetic chronic kidney disease; E78.5 Hyperlipidemia, unspecified; R06.02 Shortness of breath; I51.7 Cardiomegaly; Z99.2 Dependence on renal dialysis; Z79.4 Long term (current) use of insulin
CPT/HCPCS: 36415; 71046; 71275; 80053; 80069; 82728; 82948; 83540; 83550; 83690; 84132; 84466; 84484; 85025; 85380; 85610; 85730; 93005; 94640; 96374; 96375; 99285; A9270; C8929; G0257; G0378; J1170; J1756; J1815; J2270; J2405; J7030; Q9957; Q9967

== ENCOUNTER 2022-03-23 01:46 | Day surgery (SDC) | payer OTHER, MEDICARE, SELFPAY ==
[2022-03-04 12:45] VITALS: BMI 36.5
[2022-03-23 06:22] VITALS: BP 137/67; PULSE 100; RESP 20; TEMP 36.1; O2SAT 93
[2022-03-23] MEDS: SODIUM CHLORIDE 0.9% IV 500 ML 10 ML IV CONT (06:38)
--- NOTE | 2022-03-23 06:50 | SUR.PREOP ---
blood sugar 101 per dexcom meter.
--- NOTE | 2022-03-23 07:23 | WPDANESEPPF ---
Anes - Initial Pre Proc Eval Procedure: Operation Date: 03/23/22 07:30 Proposed Procedures p Screening Colonoscopy - Roney Metz MD Date/Time: 03/23/22 07:23 Surgeon: Roney Metz MD Pre Op Diagnosis: family hx colon ca, hx colon polyps Patient Data Age: 61 Gender: M Height: 1.73 m Weight: 109 kg Last Vital Signs Temp 97 F L 03/23/22 06:22 Pulse 100 03/23/22 06:22 Resp 20 03/23/22 06:22 BP 137/67 03/23/22 06:22 Pulse Ox 93 03/23/22 06:22 O2 Del Method Room Air 03/23/22 06:22 Allergies Allergy/AdvReac Type Severity Reaction Status Date / Time amoxicillin Allergy Unknown Unknown Verified 03/23/22 06:21 Penicillins Allergy Unknown Unknown Verified 03/23/22 06:21 Home Medications Medication Instructions Recorded Confirmed Type aspirin 325 mg tablet 325 mg PO DAILY 02/26/19 03/04/22 History blood-glucose sensor (Dexcom G6 02/26/19 01/21/21 History Sensor device) hydrocodone 5 mg-acetaminophen 325 5 - 325 tablet PO Q6H PRN Pain 02/26/19 03/04/22 History mg tablet (Scale Score 4-6) insulin glargine 100 unit/mL (3 30 unit subcut DAILY 02/26/19 03/04/22 History mL) subcutaneous pen (Basaglar KwikPen U-100 Insulin) pantoprazole 40 mg tablet,delayed 40 mg PO HS 02/26/19 03/04/22 History release rosuvastatin 20 mg tablet 20 mg PO HS 02/26/19 03/04/22 History calcium acetate 667 mg tablet 1,334 mg PO TID 03/24/20 03/04/22 History tadalafil 20 mg tablet (Cialis) 20 mg PO DAILY PRN Erectile 03/24/20 03/04/22 History Dysfunction ergocalciferol (vitamin D2) 1,250 50,000 unit WEEKLY 01/21/21 03/04/22 History mcg (50,000 unit) capsule furosemide 80 mg tablet 80 mg PO DIRECTED 01/21/21 03/04/22 History sodium,potassium,mag sulfates 17.5 See Rx Instructions PO .COMPLEX 02/23/22 Rx gram-3.13 gram-1.6 gram oral soln #354 mL (Suprep Bowel Prep Kit) docusate sodium 100 mg capsule 100 mg PO DAILY PRN Constipation 03/04/22 03/04/22 History (Colace) dulaglutide 4.5 mg/0.5 mL 0.5 mg subcut WEEKLY 03/04/22 03/04/22 History subcutaneous pen injector (Trulicity) insulin aspart 1 sliding scale dose subcut TID 03/04/22 03/04/22 History (niacinamide)(U-100) 100 unit/mL(3 mL) subcutaneous pen (Fiasp FlexTouch U-100 Insulin) lidocaine-prilocaine 2.5 %-2.5 % 1 applic topical 3XW 03/04/22 03/04/22 History topical cream zolpidem 10 mg tablet 10 mg PO HS PRN Sleep 03/04/22 03/04/22 History Patient hx anesthesia problems: none Family hx anesthesia problems: none Results Review: All pre-operative results and documents have been reviewed as part of the pre-operative evaluation. [facility] Past Medical History Medical History CKD (chronic kidney disease) Diabetes Diabetes HTN (hypertension) Hyperlipidemia Surgical History Surgical History History of total knee arthroplasty Social History Social History Smoking status: Never smoker Alcohol intake: never Substance use: never Substance use type: does not use Living arrangements: with family Spiritual care concerns: No Anes - Eval Final PreProcedure Day of Procedure 03/23/22 07:23 Patient weight: obese Heart: regular rate and rhythm Lungs: clear to auscultation Airway: Mallampati scale class III Neurological: alert and oriented Last oral intake: >/= 8 hours ASA classification: IV Emergent: no Anesthetic plan: proceed Anesthesia type and monitoring: general GIVS and standard monitoring Results Review: All pre-operative results and documents have been reviewed as part of the pre-operative evaluation. Informed Consent: The patient's anesthetic plan and its attendant risks and benefits were discussed with the patient/family/POA. Questions were solicited and answers provided to the satisfaction of the patient/family/POA.
--- NOTE | 2022-03-23 07:25 | PM.HPGS ---
History of Present Illness History of Present Illness Consent: Risks, benefits, and alternatives have been discussed and questions answered. Patient agrees to proceed with procedure. Chief complaint: family hx colon ca, hx colon polyps Narrative: Rashad Andrew is a 61 year old male Presents for screening colonoscopy. Patient's current weight appetite and bowel movements are normal. Patient denies abdominal pain. He has had no bleeding. Family history is significant his father had colon cancer. patient himself had previous history of adenomatous colon polyps. Most recent colonoscopy in 2019. Patient now is on dialysis because of end-stage renal disease. He is on the possible kidney transplant list and colonoscopy is requested prior to transplantation. Review of Systems Review of Systems: Review of systems noncontributory. [facility], [facility] Past Medical History Medical History CKD (chronic kidney disease) Diabetes Diabetes HTN (hypertension) Hyperlipidemia Surgical History Surgical History History of total knee arthroplasty Social History Social History Smoking status: Never smoker Alcohol intake: never Substance use: never Substance use type: does not use Living arrangements: with family Spiritual care concerns: No Meds Home Medications and Allergies Home Medications Medication Instructions Recorded Confirmed Type aspirin 325 mg tablet 325 mg PO DAILY 02/26/19 03/04/22 History blood-glucose sensor (Dexcom G6 02/26/19 01/21/21 History Sensor device) hydrocodone 5 mg-acetaminophen 325 5 - 325 tablet PO Q6H PRN Pain 02/26/19 03/04/22 History mg tablet (Scale Score 4-6) insulin glargine 100 unit/mL (3 30 unit subcut DAILY 02/26/19 03/04/22 History mL) subcutaneous pen (Basaglar KwikPen U-100 Insulin) pantoprazole 40 mg tablet,delayed 40 mg PO HS 02/26/19 03/04/22 History release rosuvastatin 20 mg tablet 20 mg PO HS 02/26/19 03/04/22 History calcium acetate 667 mg tablet 1,334 mg PO TID 03/24/20 03/04/22 History tadalafil 20 mg tablet (Cialis) 20 mg PO DAILY PRN Erectile 03/24/20 03/04/22 History Dysfunction ergocalciferol (vitamin D2) 1,250 50,000 unit WEEKLY 01/21/21 03/04/22 History mcg (50,000 unit) capsule furosemide 80 mg tablet 80 mg PO DIRECTED 01/21/21 03/04/22 History sodium,potassium,mag sulfates 17.5 See Rx Instructions PO .COMPLEX 02/23/22 Rx gram-3.13 gram-1.6 gram oral soln #354 mL (Suprep Bowel Prep Kit) docusate sodium 100 mg capsule 100 mg PO DAILY PRN Constipation 03/04/22 03/04/22 History (Colace) dulaglutide 4.5 mg/0.5 mL 0.5 mg subcut WEEKLY 03/04/22 03/04/22 History subcutaneous pen injector (Trulicity) insulin aspart 1 sliding scale dose subcut TID 03/04/22 03/04/22 History (niacinamide)(U-100) 100 unit/mL(3 mL) subcutaneous pen (Fiasp FlexTouch U-100 Insulin) lidocaine-prilocaine 2.5 %-2.5 % 1 applic topical 3XW 03/04/22 03/04/22 History topical cream zolpidem 10 mg tablet 10 mg PO HS PRN Sleep 03/04/22 03/04/22 History Allergies Allergy/AdvReac Type Severity Reaction Status Date / Time amoxicillin Allergy Unknown Unknown Verified 03/23/22 06:21 Penicillins Allergy Unknown Unknown Verified 03/23/22 06:21 Vital Signs Vital Signs - 24 hr 03/23/22 06:22 Temperature 97 F L Pulse Rate 100 Respiratory Rate 20 Blood Pressure 137/67 Pulse Oximetry 93 Oxygen Delivery Room Air Exam Narrative: Physical exam reveals patient to be alert. Vital signs stable. HEENT exam is unremarkable. Patient is anicteric. Lungs are clear to auscultation and percussion. Heart is without murmur or extra sounds. Abdomen bowel sounds are present soft nontender with no organomegaly. Digital external rectal exam is normal. Assessment and Plan Assessment and plan
[2022-03-23] MEDS: SIMETHICONE ORAL SUSPENSION 20 MG/0.3 ML 30 ML BOTTLE 0.6 ML IRRIGATION (07:36)
[2022-03-23 07:48] VITALS: BP 107/61; PULSE 94; RESP 20; O2SAT 94
[2022-03-23 07:58] VITALS: BP 118/64; PULSE 93; RESP 18; O2SAT 98
[2022-03-23 08:08] VITALS: BP 135/72; PULSE 91; RESP 16; O2SAT 99
--- NOTE | 2022-03-23 08:19 | SUR.PHASEII ---
BS PER DEXCOM 92
== END 2022-03-23 08:18 | disposition home or self-care (01) ==
PROVIDERS: PCP Family Medicine; Visit Provider Internal Medicine Gastroenterology
PROC: 0DJD8ZZ Inspection of Lower Intestinal Tract, Via Natural or Artificial Opening Endoscopic (ICD-10-PCS; CPT 45378; principal; 2022-03-23 07:30)
DX: Z12.11 Encounter for screening for malignant neoplasm of colon (principal); D12.2 Benign neoplasm of ascending colon; D12.3 Benign neoplasm of transverse colon; Z80.0 Family history of malignant neoplasm of digestive organs; I12.0 Hypertensive chronic kidney disease with stage 5 chronic kidney disease or end stage renal disease; E11.22 Type 2 diabetes mellitus with diabetic chronic kidney disease; N18.6 End stage renal disease; Z99.2 Dependence on renal dialysis; E78.5 Hyperlipidemia, unspecified; E66.9 Obesity, unspecified; Z68.36 Body mass index [BMI] 36.0-36.9, adult; Z79.82 Long term (current) use of aspirin; Z79.4 Long term (current) use of insulin; Z79.899 Other long term (current) drug therapy
CPT/HCPCS: 45385; 88305; J2704; J7040